=== PATIENT | female | born 1985 | race African-American/Black ===

== ENCOUNTER 2021-03-09 10:46 | Emergency (ER) | payer OTHER ==
[~2021-03-09] VITALS: Ht 180.3 cm; Wt 77.1 kg
--- NOTE | 2021-03-09 11:01 | NUR ---
The patient is in ER bed #9 for c/o lower back x 4 days 8/10 pain scale. Denies any numbness/tingling in the extremities. Will continue to monitor the patient.
--- NOTE | 2021-03-09 11:03 | NUR ---
Dr. Erickson at the bedside.
[2021-03-09] MEDS ORDERED: KETOROLAC TROMETHAMINE 15 MG/ML VIAL ONE (11:15)
[2021-03-09] MEDS: KETOROLAC TROMETHAMINE INJ 30 MG/ML VIAL IM ONE (11:17)
[2021-03-09] MEDS ORDERED: CYCL5TAB PO (11:35)
[2021-03-09] MEDS ORDERED: METH4TAB3 PO (11:35)
[2021-03-09] MEDS ORDERED: IBUP-1955 PO (11:35)
--- NOTE | 2021-03-09 11:46 | NUR ---
Patient discharged to home in stable condition. Written and verbal after care instructions given. Patient verbalizes understanding of instruction. The patient left ER in stable condition but without signing discharge papers despite explaining risks and benefits.
[2021-03-09 11:48] VITALS: BP 118/71
== END 2021-03-09 11:49 | disposition home or self-care (01) ==
LOC: ER 10:57
DX: S39.012A Strain of muscle, fascia and tendon of lower back, initial encounter (principal); X58.XXXA Exposure to other specified factors, initial encounter; Y93.89 Activity, other specified; Y92.89 Other specified places as the place of occurrence of the external cause; Y99.8 Other external cause status
CPT/HCPCS: 96372; 99283; J1885

== ENCOUNTER 2021-12-04 13:48 | Emergency (ER) | payer OTHER ==
[~2021-12-04] VITALS: Ht 177.8 cm; Wt 81.6 kg
[~2021-12-04 13:48] MED LIST: CYCL5TAB PO; IBUP-1955 PO; METH4TAB3 PO
[2021-12-04 14:03] VITALS: BP 102/77
--- NOTE | 2021-12-04 17:28 | NUR ---
left without being seen.
== END 2021-12-04 17:29 | disposition left against medical advice (07) ==
LOC: ER 13:53
DX: Z53.21 Procedure and treatment not carried out due to patient leaving prior to being seen by health care provider (principal); R05.9 Cough, unspecified; R51.9 Headache, unspecified

== ENCOUNTER 2022-08-25 13:58 | Emergency (ER) | payer OTHER ==
[~2022-08-25] VITALS: Ht 177.8 cm; Wt 79.4 kg
[2022-08-25] MEDS ORDERED: LIDOCAINE 1% INJ 50 ML MDV IJ ONE (14:13)
[2022-08-25] MEDS ORDERED: TDAP [DIPH/PERTUSSIS/TET] 0.5 ML VIAL IM ONE ×2 (14:30→14:46)
[2022-08-25] MEDS ORDERED: LIDOCAINE 1%-EPI 1:100,000 20 ML VIAL TP ONE (14:30)
[2022-08-25 15:15] VITALS: BP 126/82
== END 2022-08-25 15:16 | disposition home or self-care (01) ==
LOC: ER 14:01
DX: S61.011A Laceration without foreign body of right thumb without damage to nail, initial encounter (principal); Z79.899 Other long term (current) drug therapy; W25.XXXA Contact with sharp glass, initial encounter; Y93.89 Activity, other specified; Y92.89 Other specified places as the place of occurrence of the external cause; Y99.8 Other external cause status
CPT/HCPCS: 99283; 12001; 90471; 90715; 73130; J3490; A6403

== ENCOUNTER 2022-09-03 18:23 | Emergency (ER) | payer OTHER ==
[~2022-09-03] VITALS: Ht 180.3 cm; Wt 77.1 kg
[2022-09-03 18:38] VITALS: BP 101/40
== END 2022-09-03 19:29 | disposition home or self-care (01) ==
LOC: ER 18:23
DX: Z48.02 Encounter for removal of sutures (principal); Z79.899 Other long term (current) drug therapy

== ENCOUNTER 2024-10-28 14:30 | Emergency (ER) | payer OTHER ==
[~2024-10-28] VITALS: Ht 177.8 cm; Wt 93.0 kg
[2024-10-28 14:40] VITALS: BP 115/67; TEMP 98.3
[2024-10-28] MEDS ORDERED: CLOT15CR27 TP (15:06)
[2024-10-28 15:30] VITALS: O2SAT 99
== END 2024-10-28 15:48 | disposition home or self-care (01) ==
LOC: ER 14:52
DX: R21 Rash and other nonspecific skin eruption (principal); F12.90 Cannabis use, unspecified, uncomplicated

== ENCOUNTER 2025-09-25 14:54 | Emergency (ER) | payer MEDICAID, OTHER ==
[~2025-09-25] VITALS: Ht 180.3 cm; Wt 93.0 kg
[~2025-09-25 14:54] MED LIST changes: +CLOT15CR27 TP
[2025-09-25 15:11] VITALS: BP 102/72; TEMP 98.1
[2025-09-25 15:45] LABS: PREGNANCY TEST URINE QUAL NEGATIVE (NEGATIVE)
[2025-09-25] MEDS ORDERED: AMOXICILLIN TRIHYDRATE 250 MG CAPSULE ONE (15:50)
[2025-09-25] MEDS: AMOXICILLIN TRIHYDRATE 500 MG CAPSULE PO ONE (15:50)
[2025-09-25] MEDS ORDERED: AMOX500T2 PO (16:24)
[2025-09-25] MEDS ORDERED: IBUP-1490 PO (16:24)
[2025-09-25] MEDS ORDERED: IBUPROFEN 600 MG TABLET ONE (16:36)
[2025-09-25] MEDS: IBUPROFEN 600 MG TABLET PO ONE (16:38)
[2025-09-25 16:40] VITALS: O2SAT 99
== END 2025-09-25 16:45 | disposition home or self-care (01) ==
LOC: ER 15:07
DX: K04.7 Periapical abscess without sinus (principal); F12.90 Cannabis use, unspecified, uncomplicated; Z98.84 Bariatric surgery status; Z60.2 Problems related to living alone
CPT/HCPCS: 84703-TC